=== PATIENT | female | born 1955 | race Caucasian/White ===

== ENCOUNTER 2016-11-08 07:21 | Inpatient (IN) | payer BC ==
[~2016-11-08] VITALS: Ht 162.6 cm; Wt 87.5 kg
[2016-11-08] MEDS ORDERED: CARV25TA55 PO (08:37)
[2016-11-08] MEDS ORDERED: LIP10 PO (08:37)
[2016-11-08] MEDS ORDERED: PRO40 PO (08:37)
[2016-11-08] MEDS ORDERED: AMLO5TAB4 PO (08:37)
[2016-11-08] MEDS ORDERED: HYDR12.55 (08:39)
[2016-11-08] MEDS ORDERED: SENNOSIDES 8.6 MG TABLET PO PRN (09:45)
[2016-11-08] MEDS ORDERED: HYDROcodone/ACETAMIN 7.5-325 MG TAB PO PRN (09:45)
[2016-11-08] MEDS ORDERED: PROMETHAZINE HCL 25 MG/ML AMP IVP PRN (09:45)
[2016-11-08] MEDS ORDERED: ACETAMINOPHEN 325 MG TABLET PO PRN (09:45)
[2016-11-08] MEDS ORDERED: POLYMYXIN 500,000/BACIT.10,000 UNITS in NS IRR 1 L IR ONE (10:08)
[2016-11-08] MEDS ORDERED: CLINDAMYCIN 900 mg/50mL D5W 50 ML IV ONE (10:11)
[2016-11-08] MEDS ORDERED: CLINDAMYCIN PHOS 900 MG/ D5W 50 ML PREMIX IV ONE (10:15)
[2016-11-08] MEDS ORDERED: LR 1,000 ML IV SCH (10:49)
[2016-11-08] MEDS ORDERED: HYDROcodone/ACETAMIN 10-325 MG TAB PO PRN ×2 (11:00)
[2016-11-08] MEDS ORDERED: HYDROmorphone 2 MG/ML VIAL IVP PRN ×2 (11:00)
[2016-11-08] MEDS ORDERED: HYDROmorphone 1 MG INJ. 1 MG/ML AMPUL IVP PRN (11:00)
[2016-11-08] MEDS ORDERED: MEPERIDINE HCL/PF 25 MG/ML DISP.SYRIN IVP PRN (11:00)
[2016-11-08] MEDS ORDERED: FAMOTIDINE PF 20 MG/2 ML VIAL ONE (11:02)
[2016-11-08] MEDS ORDERED: SEVOFLURANE 15 MIN GAS INH ONE (14:00)
[2016-11-08] MEDS ORDERED: DEXAMETHASONE SOD PHOSPHATE 4 MG/ML VIAL ONE (14:00)
[2016-11-08] MEDS ORDERED: LR 1,000 ML IV.SOLN IV ONE (14:00)
[2016-11-08] MEDS ORDERED: DILTIAZEM HCL 25 MG/5 ML VIAL ONE (14:00)
[2016-11-08] MEDS ORDERED: ONDANSETRON HCL 4 MG/2 ML VIAL ONE (14:00)
[2016-11-08] MEDS ORDERED: NS 100 ML BAG IV ONE (14:00)
[2016-11-08] MEDS ORDERED: fentaNYL CITRATE 250 MCG/5 ML AMP ONE (14:00)
[2016-11-08] MEDS ORDERED: KETOROLAC TROMETHAMINE 30 MG VIAL ONE (14:00)
[2016-11-08] MEDS ORDERED: ROCURONIUM BROMIDE 10 MG/ML (ZEMURON) ONE (14:00)
[2016-11-08] MEDS ORDERED: PROPOFOL 200MG/ 20ML VIAL (DIPRIVAN) IV ONE (14:00)
[2016-11-08] MEDS ORDERED: MIDAZOLAM HCL 5 MG/5 ML VIAL ONE (14:00)
[2016-11-08] MEDS ORDERED: TRANEXAMIC ACID 1,000 MG/10 ML VIAL IV ONE (14:00)
[2016-11-08] MEDS ORDERED: METOCLOPRAMIDE HCL 10 MG/2 ML VIAL ONE (14:00)
[2016-11-08 14:25] VITALS: BP 127/66; PULSE 66; RESP 17; TEMP 96.7; O2SAT 96
[2016-11-08 14:30] VITALS: BP 127/66; PULSE 66; RESP 17; TEMP 96.7; O2SAT 96
[2016-11-08] MEDS ORDERED: NALOXONE HCL 0.4 MG/ML AMP (NARCAN) IVP PRN (14:30)
[2016-11-08] MEDS ORDERED: HYDROMORPHONE PCA 10 mg/50 mL IV PRN (14:30)
[2016-11-08] MEDS: ONDANSETRON HCL 4 MG/2 ML VIAL IVP PRN (16:00)
[2016-11-08] MEDS: CLINDAMYCIN 900 MG in D5W 100 ML IV SCH ×2 (16:04→23:45)
[2016-11-08] MEDS: D5LR 1,000 ML IV SCH (16:17)
[2016-11-08] MEDS ORDERED: ROPIVACAINE 0.2% 100 ML INJ SCH (18:00)
[2016-11-08 19:30] VITALS: BP 111/67; PULSE 63; RESP 18; TEMP 97.6; O2SAT 98
[2016-11-08] MEDS: amLODIPine BESYLATE 5 MG TABLET PO SCH (21:00)
[2016-11-08] MEDS: CARVEDILOL 25 MG TABLET (COREG) PO SCH (21:00)
[2016-11-09] VITALS (7 sets, daily range): BP systolic 122–143; BP diastolic 63–70; PULSE 58–98; RESP 16–20; TEMP 96.2–99.8; O2SAT 94–100
[2016-11-09] MEDS: D5LR 1,000 ML IV SCH ×3 (02:19→13:55)
[2016-11-09 06:42] LABS: BASOPHILS % (AUTO) 0.1 % (0.0-2.0); EOSINOPHILS % (AUTO) 0.2 % (0.0-4.0); HEMATOCRIT 29.1 % (36-48); LYMPHOCYTES # (AUTO) 1.3 K/uL (1.0-5.5); LYMPHOCYTES % (AUTO) 12.4 % (20.5-51.5); MEAN CORPUSCULAR HEMOGLOBIN 30 pg (27-31); MEAN CORPUSCULAR HGB CONC 34 % (32-36); MEAN CORPUSCULAR VOLUME 87 fL (79.0-98.0); MONOCYTES # (AUTO) 0.7 K/uL (0.0-1.0); MONOCYTES % (AUTO) 7.1 % (1.7-9.3); NEUTROPHILS # (AUTO) 8.2 K/uL (1.8-7.7); NEUTROPHILS % (AUTO) 80.2 % (40.0-70.0); PLATELET COUNT (AUTO) 224 K/uL (130-430); RED BLOOD CELL COUNT(AUTO) 3.34 MIL/uL (4.2-6.2); RED CELL DISTRIBUTION WIDTH 14.3 % (9.0-15.0); WHITE BLOOD COUNT (AUTO) 10.2 K/uL (4.8-10.8)
[2016-11-09 06:51] LABS: CALCIUM 8.2 mg/dL (8.4-11.0); CREATININE 1.06 mg/dL (0.55-1.30); POTASSIUM 4.6 mmol/L (3.5-5.1)
[2016-11-09] MEDS: amLODIPine BESYLATE 5 MG TABLET PO SCH ×2 (08:58→21:12)
[2016-11-09] MEDS: CARVEDILOL 25 MG TABLET (COREG) PO SCH ×2 (08:58→21:12)
[2016-11-09] MEDS: CLINDAMYCIN 900 MG in D5W 100 ML IV SCH (09:01)
[2016-11-09] MEDS: PANTOPRAZOLE SODIUM 40 MG TAB PO SCH (09:01)
[2016-11-09] MEDS: ATORVASTATIN 10 MG TABLET PO SCH (09:01)
[2016-11-09] MEDS: RIVAROXABAN 10 MG TABLET PO SCH (09:07)
[2016-11-09] MEDS: DIPHENHYDRAMINE HCL 25 MG CAPSULE PO PRN (10:53)
[2016-11-09] MEDS: ONDANSETRON HCL 4 MG/2 ML VIAL IVP PRN (10:53)
[2016-11-10 04:54] VITALS: BP 129/74; PULSE 80; RESP 18; TEMP 99.9; O2SAT 93
[2016-11-10 07:01] LABS: BASOPHILS % (AUTO) 0.3 % (0.0-2.0); EOSINOPHILS % (AUTO) 0.2 % (0.0-4.0); HEMATOCRIT 26.1 % (36-48); HEMOGLOBIN 8.8 g/dL (12.0-16.0); LYMPHOCYTES # (AUTO) 1.8 K/uL (1.0-5.5); LYMPHOCYTES % (AUTO) 19.6 % (20.5-51.5); MEAN CORPUSCULAR HEMOGLOBIN 30 pg (27-31); MEAN CORPUSCULAR HGB CONC 34 % (32-36); MEAN CORPUSCULAR VOLUME 88 fL (79.0-98.0); MONOCYTES # (AUTO) 0.9 K/uL (0.0-1.0); MONOCYTES % (AUTO) 9.8 % (1.7-9.3); NEUTROPHILS # (AUTO) 6.7 K/uL (1.8-7.7); NEUTROPHILS % (AUTO) 70.1 % (40.0-70.0); PLATELET COUNT (AUTO) 183 K/uL (130-430); RED BLOOD CELL COUNT(AUTO) 2.96 MIL/uL (4.2-6.2); RED CELL DISTRIBUTION WIDTH 14.7 % (9.0-15.0); WHITE BLOOD COUNT (AUTO) 9.4 K/uL (4.8-10.8)
[2016-11-10 07:02] LABS: CALCIUM 8.2 mg/dL (8.4-11.0)
[2016-11-10 07:36] LABS: CREATININE 1.02 mg/dL (0.55-1.30); POTASSIUM 3.9 mmol/L (3.5-5.1)
[2016-11-10] MEDS ORDERED: MORPHINE 2 MG/ML INJ. SYRINGE IVP PRN (07:45)
[2016-11-10 08:00] VITALS: BP 129/74; PULSE 80; RESP 18; TEMP 98.7; O2SAT 99
[2016-11-10] MEDS: RIVAROXABAN 10 MG TABLET PO SCH (09:24)
[2016-11-10] MEDS: ATORVASTATIN 10 MG TABLET PO SCH (09:24)
[2016-11-10] MEDS: PANTOPRAZOLE SODIUM 40 MG TAB PO SCH (09:25)
[2016-11-10] MEDS: amLODIPine BESYLATE 5 MG TABLET PO SCH (09:25)
[2016-11-10] MEDS: CARVEDILOL 25 MG TABLET (COREG) PO SCH (09:25)
[2016-11-10] MEDS: D5LR 1,000 ML IV SCH (10:35)
[2016-11-10] MEDS: DIPHENHYDRAMINE HCL 25 MG CAPSULE PO PRN (10:44)
[2016-11-10 12:28] VITALS: BP 148/67; PULSE 66; RESP 16; TEMP 97.6; O2SAT 98
[2016-11-10 16:02] VITALS: BP 118/58; PULSE 67; RESP 16; TEMP 99.1; O2SAT 97
[2016-11-10 19:56] VITALS: BP 114/53; PULSE 74; RESP 18; TEMP 98.5; O2SAT 100
== END 2016-11-10 20:55 | DRG 470 ==
LOC: SMU 07:21 → STU 14:50
PROVIDERS: ADMIT Orthopaedic Surgery; ATTEND Orthopaedic Surgery
PROC: 0SRC0J9 Replacement of Right Knee Joint with Synthetic Substitute, Cemented, Open Approach (ICD-10-PCS; principal; 2016-11-08 09:45)
PROC: 30233N1 Transfusion of Nonautologous Red Blood Cells into Peripheral Vein, Percutaneous Approach (ICD-10-PCS; 2016-11-10)
DX: M17.11 Unilateral primary osteoarthritis, right knee (principal); I10 Essential (primary) hypertension; Z88.0 Allergy status to penicillin; Z88.6 Allergy status to analgesic agent
CPT/HCPCS: 36415; 80048; 85025; 86886; 86900; 86901; 86920; 87081; 88305; 88311; 97039; 97110-GP; 97116-GP; 97530-GP; C1713; C1776; J1100; J1170; J1885; J2250; J2405; J2704; J2765; J2795; J3010; J3490; J7040; J7060; J7120; P9021; Q0163